=== PATIENT | female | born 1995 | race Caucasian/White ===

== ENCOUNTER 2018-02-08 23:13 | Emergency (ER) | payer MEDICAID ==
[~2018-02-08] VITALS: Ht 172.7 cm; Wt 127.3 kg
[~2018-02-08 23:13] MED LIST: ALBU6.7H3 IH; ALBU8.5H8 INH; ALBU8HFA PO; DIPH25CA83 PO; GUAI120015 PO; HYDR-3564 PO; HYDR-569 PO; IBUP-1574 PO; NO HOME MEDS; ONDA4TAB12 PO; ONDA8TAB9 PO; RANI-366 PO; ZOF4T PO
[2018-02-08] MEDS ORDERED: LIDOcaine Viscous 15ml cup MM STA (23:50)
[2018-02-08] MEDS ORDERED: dexamethasone sod phosphate 10mg/ml inj PO STA (23:50)
[2018-02-09 00:20] VITALS: BP 123/76
[2018-02-09] MEDS ORDERED: PHEN30SP9 PO (00:23)
== END 2018-02-09 01:00 | disposition home or self-care (01) ==
LOC: ER 23:13
DX: J02.9 Acute pharyngitis, unspecified (principal); H92.02 Otalgia, left ear; J45.909 Unspecified asthma, uncomplicated; Z98.890 Other specified postprocedural states; Z79.899 Other long term (current) drug therapy
CPT/HCPCS: 87081; 87880; 99284; J1100; 99283

== ENCOUNTER 2018-02-13 17:33 | Emergency (ER) | payer MEDICAID ==
[~2018-02-13 17:33] MED LIST changes: +PHEN30SP9 PO
== END 2018-02-13 18:18 | disposition left against medical advice (07) ==
LOC: ER 17:34
DX: J02.9 Acute pharyngitis, unspecified (principal); Z53.21 Procedure and treatment not carried out due to patient leaving prior to being seen by health care provider

== ENCOUNTER 2019-02-10 16:42 | Emergency (ER) | payer MEDICAID ==
[~2019-02-10] VITALS: Ht 167.6 cm; Wt 135.0 kg
[~2019-02-10 16:42] MED LIST changes: -HYDR-3564 PO; +HYDR-3565 PO; +HYDR-4383 PO; -HYDR-569 PO
--- NOTE | 2019-02-10 18:26 | NUR ---
called lonnie spoke to Deisy,said that patient needs to report this to the county where it happened.No case Number.
--- NOTE | 2019-02-10 18:27 | NUR ---
patient refused to file report.
[2019-02-10 19:13] VITALS: BP 152/58
[2019-02-10] MEDS ORDERED: HYDR-3965 PO (20:24)
[2019-02-10] MEDS ORDERED: ondansetron 4mg rapidly disintigrating tab PO ONE (20:25)
[2019-02-10] MEDS ORDERED: HYDROcodone/acetaminophen 5mg/325mg tablet PO ONE (20:25)
== END 2019-02-10 20:50 | disposition home or self-care (01) ==
LOC: ER 16:43
DX: S06.0X1A Concussion with loss of consciousness of 30 minutes or less, initial encounter (principal); M25.561 Pain in right knee; J45.909 Unspecified asthma, uncomplicated; Z98.890 Other specified postprocedural states; Z79.899 Other long term (current) drug therapy; Y04.8XXA Assault by other bodily force, initial encounter; Y93.89 Activity, other specified; Y92.89 Other specified places as the place of occurrence of the external cause; Y99.8 Other external cause status
CPT/HCPCS: 73564; 99284

== ENCOUNTER 2019-03-13 03:27 | Emergency (ER) | payer MEDICAID ==
[~2019-03-13] VITALS: Ht 162.6 cm; Wt 120.0 kg
[~2019-03-13 03:27] MED LIST changes: +HYDR-3965 PO
[2019-03-13 03:35] VITALS: BP 140/79
== END 2019-03-13 04:30 | disposition home or self-care (01) ==
LOC: ER 03:28
DX: O26.891 Other specified pregnancy related conditions, first trimester (principal); O99.511 Diseases of the respiratory system complicating pregnancy, first trimester; L29.9 Pruritus, unspecified; J45.909 Unspecified asthma, uncomplicated; Z98.890 Other specified postprocedural states; Z79.899 Other long term (current) drug therapy; Z3A.01 Less than 8 weeks gestation of pregnancy
CPT/HCPCS: 99281

== ENCOUNTER 2019-12-30 07:55 | Emergency (ER) | payer MEDICAID ==
[~2019-12-30] VITALS: Ht 167.6 cm; Wt 116.3 kg
[~2019-12-30 07:55] MED LIST changes: -HYDR-3965 PO; +PRED5DRO23 LEFTEYE
[2019-12-30 07:58] VITALS: BP 148/88
[2019-12-30] MEDS ORDERED: TRIA15CR61 TP (08:16)
[2019-12-30] MEDS ORDERED: DOXY100C76 PO (08:16)
== END 2019-12-30 08:22 | disposition home or self-care (01) ==
LOC: ER 07:55
DX: L73.9 Follicular disorder, unspecified (principal); J45.909 Unspecified asthma, uncomplicated; Z98.890 Other specified postprocedural states; Z79.2 Long term (current) use of antibiotics; Z79.899 Other long term (current) drug therapy
CPT/HCPCS: 99283

== ENCOUNTER 2021-03-08 22:59 | Emergency (ER) | payer MEDICAID ==
[~2021-03-08] VITALS: Ht 172.7 cm; Wt 131.8 kg
--- NOTE | 2021-03-08 23:28 | NUR ---
Report from Jessica CARTAGENA states pt has had numbness to hands and feet over the last few weeks and just today got pins and needles feeling to face. 12-lead EKG done. Pt denies any neurological history. Up to be seen by MD. Denies any CP, but states she occasionally get SOB.
[2021-03-08] MEDS ORDERED: LORazepam 0.5 MG tablet PO STA (23:34)
[2021-03-08 23:48] LABS: BASOPHILS # (AUTO) 0.1 X10'3 (0-0.2); BASOPHILS % (AUTO) 0.7 % (0-1); EOSINOPHILS # (AUTO) 0.1 X10'3 (0-0.9); HEMATOCRIT 39.8 % (35.0-45.0); HEMOGLOBIN 13.4 g/dl (12.0-16.0); LYMPHOCYTES # (AUTO) 3.2 X10'3 (1.1-4.8); LYMPHOCYTES % (AUTO) 27.2 % (21-51); MEAN CORPUSCULAR HEMOGLOBIN 31.8 PG (27.0-31.0); MEAN CORPUSCULAR HGB CONC 33.8 g/dL (33.0-36.5); MEAN CORPUSCULAR VOLUME 94.2 FL (78-98); MEAN PLATELET VOLUME 8.8 FL (7.4-10.4); MONOCYTES # (AUTO) 0.7 X10'3 (0-0.9); MONOCYTES % (AUTO) 6.4 % (2-12); NEUTROPHILS # (AUTO) 7.5 X10'3 (1.8-7.7); NEUTROPHILS % (AUTO) 64.7 % (42-75); PLATELET COUNT 256 X10'3 (140-440); RED BLOOD COUNT 4.22 X10'6 (4.20-5.60); RED CELL DISTRIBUTION WIDTH 13.2 % (11.5-14.5); WHITE BLOOD COUNT 11.7 X10'3 (4.5-11.0)
[2021-03-09] LABS: ALANINE AMINOTRANSFERASE 84 U/L (12-78); ALBUMIN 3.8 G/DL (3.4-5.0); ALBUMIN/GLOBULIN RATIO 1.1 (1.1-1.5); ALKALINE PHOSPHATASE 97 IU/L (46-116); ANION GAP 8 (8-16); ASPARTATE AMINO TRANSFERASE 90 U/L (10-37); BILIRUBIN,TOTAL 0.2 MG/DL (0.1-1.0); BLOOD UREA NITROGEN 13 MG/DL (7-18); BUN/CREATININE RATIO 15.5 (6.6-38.0); CHLORIDE 104 MMOL/L (99-107); CREATININE 0.84 MG/DL (0.40-0.90); GLUCOSE 83 MG/DL (70-104); POTASSIUM 3.3 MMOL/L (3.5-5.1); SODIUM 142 MMOL/L (135-145); TOTAL CARBON DIOXIDE 29.7 MMOL/L (24-32); TOTAL PROTEIN 7.4 G/DL (6.4-8.2); eGFR 81 ML/MIN
[2021-03-09 00:56] VITALS: BP 148/111
== END 2021-03-09 00:59 | disposition home or self-care (01) ==
LOC: ER 23:00
DX: R20.2 Paresthesia of skin (principal); R42 Dizziness and giddiness; R11.0 Nausea; J45.909 Unspecified asthma, uncomplicated; Z72.89 Other problems related to lifestyle; Z98.890 Other specified postprocedural states; Z79.899 Other long term (current) drug therapy
CPT/HCPCS: 36415; 80053; 84484; 85025; 93005; 99284

== ENCOUNTER 2021-08-29 19:40 | Emergency (ER) | payer MEDICAID ==
[~2021-08-29] VITALS: Ht 172.7 cm; Wt 127.3 kg
[~2021-08-29 19:40] MED LIST changes: +ALBU8.5H17 INH; -ALBU8.5H8 INH
[2021-08-29 19:48] VITALS: BP 159/136
== END 2021-08-29 23:39 | disposition left against medical advice (07) ==
LOC: ER 19:40
DX: R42 Dizziness and giddiness (principal); F14.10 Cocaine abuse, uncomplicated; Z53.21 Procedure and treatment not carried out due to patient leaving prior to being seen by health care provider
CPT/HCPCS: 93005

== ENCOUNTER 2023-10-01 11:14 | Inpatient (IN) | payer MEDICAID ==
[~2023-10-01] VITALS: Ht 162.6 cm; Wt 104.1 kg
[2023-10-01 11:45] LABS: BILIRUBIN,URINE NEGATIVE (Neg); CLARITY,URINE SLIGHTLY CLOUDY (Clear); COLOR,URINE YELLOW (Yellow); GLUCOSE, URINE NEGATIVE (Neg); KETONES,URINE TRACE mg/dl (Neg); LEUKOCYTE ESTERASE ,URINE NEGATIVE (Neg); NITRITES, URINE POSITIVE (Neg); OCCULT BLOOD,URINE NEGATIVE (Neg); PH,URINE 7.5 (4.8-8.0); PROTEIN,URINE NEGATIVE (Neg); URINE HCG NEGATIVE (NEG); UROBILINOGEN,URINE 0.2 E.U/dL (0.2-1.0)
[2023-10-01 11:49] LABS: UA COLLECTION TYPE CLN CATCH MIDSTREAM
--- NOTE | 2023-10-01 11:50 | NUR ---
CLEARING HAND YUE MADE AWARE OF PT SI
[2023-10-01 11:53] LABS: WBC,URINE 0-4 /HPF (0-4)
[2023-10-01 11:54] LABS: BACTERIA,URINE 4+ /HPF (Neg); MUCUS STRANDS FEW /LPF (Neg); RBC,URINE NONE SEEN /HPF (0-2); SQUAMOUS EPITHELIAL CELL,UR MANY /LPF (FEW)
[2023-10-01 11:59] LABS: URINE AMPHETAMINE SCREEN POSITIVE (Neg); URINE BARBITUATE SCREEN NEGATIVE (Neg); URINE BENZODIAZEPINES SCREEN NEGATIVE (Neg); URINE CANNABINOID SCREEN NEGATIVE (Neg); URINE COCAINE SCREEN NEGATIVE (Neg); URINE METHADONE SCREEN NEGATIVE (Neg); URINE OPIATE SCREEN NEGATIVE (Neg); URINE PHENCYCLIDINE SCREEN NEGATIVE (Neg)
[2023-10-01 12:24] LABS: BASOPHILS # (AUTO) 0.1 X10'3 (0-0.2); BASOPHILS % (AUTO) 0.6 % (0-1); EOSINOPHILS # (AUTO) 0.1 X10'3 (0-0.9); EOSINOPHILS % (AUTO) 1.1 % (0-6); HEMATOCRIT 41.7 % (35.0-45.0); LYMPHOCYTES # (AUTO) 2.2 X10'3 (1.1-4.8); LYMPHOCYTES % (AUTO) 22.5 % (21-51); MEAN CORPUSCULAR HEMOGLOBIN 29.4 PG (27.0-31.0); MEAN CORPUSCULAR HGB CONC 33.5 g/dL (33.0-36.5); MEAN CORPUSCULAR VOLUME 87.8 FL (78-98); MEAN PLATELET VOLUME 8.3 FL (7.4-10.4); MONOCYTES # (AUTO) 0.7 X10'3 (0-0.9); MONOCYTES % (AUTO) 6.8 % (2-12); NEUTROPHILS # (AUTO) 6.9 X10'3 (1.8-7.7); PLATELET COUNT 264 X10'3 (140-440); RED BLOOD COUNT 4.75 X10'6 (4.20-5.60); RED CELL DISTRIBUTION WIDTH 12.9 % (11.5-14.5); WHITE BLOOD COUNT 9.9 X10'3 (4.5-11.0)
--- NOTE | 2023-10-01 12:28 | NUR ---
Pt. ambulated over from the Main ER accompanied by staff.
[2023-10-01 12:39] LABS: ALANINE AMINOTRANSFERASE 79 U/L (12-78); ALBUMIN 3.4 G/DL (3.4-5.0); ALBUMIN/GLOBULIN RATIO 1.1 (1.1-1.5); ALKALINE PHOSPHATASE 106 IU/L (46-116); ANION GAP 7 (8-16); ASPARTATE AMINO TRANSFERASE 75 U/L (10-37); BILIRUBIN,TOTAL 0.2 MG/DL (0.1-1.0); BLOOD UREA NITROGEN 12 MG/DL (7-18); BUN/CREATININE RATIO 16.4 (10.0-20.0); CALCIUM 9.1 MG/DL (8.5-10.1); CHLORIDE 103 MMOL/L (99-107); CREATININE 0.73 MG/DL (0.40-0.90); GLUCOSE 109 MG/DL (70-104); POTASSIUM 3.9 MMOL/L (3.5-5.1); SODIUM 137 MMOL/L (135-145); TOTAL CARBON DIOXIDE 27.2 MMOL/L (24-32); TOTAL PROTEIN 6.6 G/DL (6.4-8.2); eCRCL 98 ML/MIN; eGFR > 90 ML/MIN
--- NOTE | 2023-10-01 12:40 | NUR ---
Pt. is adamantly refusing to change into green scrubs at this time, states, "No one told me I was on a hold! I just came here to get my medications refilled!" Pt. verbally abusive towards staff. Security was called for standby assistance.
[2023-10-01 12:49] LABS: ETHANOL < 10 MG/DL (<10); THYROID STIMULATING HORMONE 1.16 ulU/ml (0.34-4.50)
--- NOTE | 2023-10-01 12:52 | NUR ---
MD is at bedside talking to pt. at this time and explaining MH hold.
[2023-10-01] MEDS ORDERED: hydrOXYzine 25 MG tablet PO ONE (13:00)
--- NOTE | 2023-10-01 13:00 | NUR ---
Pt. finally consented to changing into green scrubs after she spoke to REMI Coleman. Security stood by while pt. did so, however pt. proceeded to throw her shoes and each item of clothing out of the curtain towards staff members. She remains agitated and verbally abusive towards staff stating, "Get the hell away from me! I'm going to odell you!" Pt. was able to be verbally redirected and REMI Coleman came back over to talk to pt. He gave orders for oral Atarax 50mg and provided education to pt. that if her behaviors continued to escalate, further interventions would be used. Pt. reported understanding and accepted oral medication while security stood by.
--- NOTE | 2023-10-01 13:20 | NUR ---
Pt. is laying in bed resting at this time, she refused lunch. Will continue to monitor closely.
--- NOTE | 2023-10-01 13:35 | NUR ---
[facility] PACKET FAXED.
--- NOTE | 2023-10-01 15:12 | NUR ---
This senior technical writer attempted to complete 1:1 at bedside. Pt. presents as fatigued and irritable, she does not open her eyes to look at this senior technical writer and responds to direct questions only with mostly, "No!" Pt. is uncooperative with physical assessment, medical history, and parts of the mental health assessment; she is a poor historian. Pt. denies any current S/I and perseverates on her desire to discharged. She also denies any A/V/MACHUCA and no delusional statements were made. Pt. become increasingly agitated and this senior technical writer was unable to complete a medication reconciliation at this time. Pt. appears to be sleeping, will continue to monitor closely.
--- NOTE | 2023-10-01 16:28 | NUR ---
[facility] charge nurse down to evaluate pt. for acceptance. Pt. continues to present as irritable, uncooperative, verbally abusive, and uses multiple profanities towards staff when asked to participate in assessment. The light to pt's room was turned on to obtain vital signs and pt. become irritable and yelled out, "Turn the fing light off! Do your job!" Pt. then returned back to sleep, will continue to monitor closely. Pt. was declined for acceptance at [facility].
--- NOTE | 2023-10-01 16:46 | NUR ---
Pt. awake at this time demanding the "Food out of her backpack!" Was provided education by this tag writer that she could not have outside food per policy. Pt. continued to be agitated and yelled out, "Then get me some f...ing food!" Pt. was provided with a snack and security was called for standby. Pt. returned back to sleep, will continue to monitor.
[2023-10-01] MEDS ORDERED: LORazepam 1 MG tablet PO ONE (17:40)
--- NOTE | 2023-10-01 17:41 | NUR ---
Pt. ate dinner and then reported anxiety and requested medication. This was endorsed to REMI Puga and oral Ativan 1mg was ordered. Medication was administered and pt. is sleeping at this time. Will continue to monitor.
[2023-10-01] MEDS ORDERED: NO HOME MEDS (19:37)
--- NOTE | 2023-10-01 19:38 | NUR ---
The patient appears to be sleeping. She is laying on her back with even and unlabored breathing.
--- NOTE | 2023-10-01 20:35 | NUR ---
The patient is restless on her bed but appears to be sleeping. At one point yelled out "Fuck!" but still appears to be sleeping
--- NOTE | 2023-10-01 23:02 | NUR ---
The patient appears to be asleep but is restless and periodically yelling out profanities.
--- NOTE | 2023-10-02 00:04 | NUR ---
The patient is awake and hungry. She was given a sandwhich. She is calmer but still anxious. Dr. iRvera made aware and ativan order.
[2023-10-02] MEDS ORDERED: LORazepam 1 MG tablet PO ONE (00:05)
--- NOTE | 2023-10-02 00:58 | NUR ---
The patient appears to be back asleep
--- NOTE | 2023-10-02 03:09 | NUR ---
The patient appears to be sleeping
--- NOTE | 2023-10-02 05:22 | NUR ---
The patient appears to be sleeping
[2023-10-02 10:05] VITALS: BP 123/78; PULSE 98; RESP 16; TEMP 98.3; O2SAT 98
[2023-10-02] MEDS ORDERED: haloperidol lactate 5mg/ml inj ONE ×2 (10:10→10:11)
--- NOTE | 2023-10-02 10:10 | NUR ---
Admit note: Pt [facility] to [facility] from our emergency room on a 5150 for DTS at 1005. Pt states having a noose at home and reported to multiple sources a plan and intention to hang herself. Pt has history of depression. Upon arrival pt refusing to get out of the wheelchair or follow any instructions. Security attempted to assist pt up out of wheelchair and pt screaming and fighting and cursing and threatening. Pt taken into seclusion room. Pt continues fighting and screaming. Pt unable to follow any safety instructions. Pt then restrained with four point restraints. Pt given Haldol 10mg IM, Benadryl 50mg IM, Ativan 2mg IM per REMI cortés.
[2023-10-02] MEDS ORDERED: diphenhydrAMINE 50 mg/ml inj ONE (10:11)
[2023-10-02] MEDS ORDERED: LORazepam 2 mg/ml vial ONE (10:12)
--- NOTE | 2023-10-02 10:54 | NUR ---
S/R Initiation (Y=yes; N=no) Date Seclusion/Behavioral Restraint Episode Began:10-02-23 Time Seclusion/Behavioral Restraint Episode Began:1009 Type of Restraint(Document Y for the type utilized) mechanical-4 point:Y physical hold:Y seclusion:Y Behavior Necessitating Behavioral Restraint/Seclusion(Document Y for DTS and/or DTO). Danger to self:[] Danger to others:Y Alternatives Attempted(Document Y for the alternatives attempted). Decrease stimuli:Y Diversional activities:Y Verbal limit setting:Y Medication:[] Reality orientation:Y Show of support:Y Problem solving:Y De-escalation:Y Food and fluids:[] Increased observation:[] Other:[] Behavioral Description(narrative of circumstances that led to use of S/R):Screaming, fighting, biting, spitting Medications Given:(medication name/time/route/location/effectiveness):Haldol 10mg IM, Benadryl 50mg IM, Ativan 2 MG IM Patient Injuries Y/N(if Y,describe/actions taken/outcome):N Notifications. Provider/Guardian/conservator/Family/other/No one identified by patient to be notified:[] Education. Education Topic for Seclusion and Behavioral Restraint(must educate each element and Document Y) Hospital policy:Y Reason for seclusion or restraint:[Y] Bx necessary for release:[Y] Monitoring of patient/behavior:[Y] Individual Taught(Document Y for individuals taught). Patient:[Y] Family:[] Significant other:[] Barriers to Learning(Document Y for the barrier(s)identified). None Identified:[] Emotional Barriers:[Y] Inability to Read:[] Anabaptism Practices:[] Cognitive Impairment:[y] Lack of Motivation:[] Language Barriers:[] Hearing:[] Cultural Practice:[] Other:[] Teaching Method(Document Y for the method(s)utilized). Verbal:[Y] Audio/Visual:[] Handouts:[] Demonstration:[] Other:[] Teaching Evaluation(Document Y for which response is applicable to patient). Verbalizes Understanding:[Y] Needs Further Teaching:[] Returns Demonstration:[] Needs Reinforcement:[] Needs Practice:[] Needs Supervision:[]
--- NOTE | 2023-10-02 11:00 | NUR ---
Seclusion: Pt is able to stop screaming and requesting to use bathroom. Pt is able to follow instructions enough to come out of restrains. Pt remained in seclusion until able to remain calm.
[2023-10-02] MEDS ORDERED: loperamide 2mg capsule PO PRN (11:05)
[2023-10-02] MEDS ORDERED: magnesium hydroxide 30ml (MOM) UD suspension PO PRN (11:05)
[2023-10-02] MEDS ORDERED: acetaminophen 325mg tablet PO PRN ×2 (11:05)
[2023-10-02] MEDS ORDERED: mag hydrox/Alum hydrox/simeth 30ml oral suspension PO PRN (11:05)
--- NOTE | 2023-10-02 11:56 | NUR ---
S/R Debrief (Y=yes; N=no) Date of Seclusion/Behavioral Restraint [id number] Time of Seclusion/Behavioral Restraint [id number] Date of Patient Debrief:10-02-23 Time of Patient Debrief:1030 Patient Attended Debrief (if N then comment why)N. Pt lenka not want to be part of debreif Debrief Info in patient words if possible (not necessary if pt. did not attend debrief) What led to the episode:Pt did not want to be on unit against her will How could patient have handled things differently:Perceived that staff wanted to help her and were being kind and understanding in their explanations. How could staff have handled things differently: Staff thought it was handled in a manner in which Pt and staff and others on unit were not injured. Patient Perception of Episode: Pt perceives she is being treated unfairly Physical Well-Being-(Y/N) Intact:[Y] Altered:[] Comment if altered:[] Psychological/Emotional Comfort-(Y/N) Intact:[Y] Altered:[] Comment if altered:[] Right to Privacy- (Y/N) Intact:[Y] Altered:[] Comment if altered:[] Trauma Experienced- (Y/N) Intact:[Y] Altered:[] Comment if altered:[]
--- NOTE | 2023-10-02 12:02 | NUR ---
S/R Discontinuation (Y=yes; N=no) Criteria for Release from Seclusion/Behavioral Restraint.(Y/N) Contracts for Safety:[] No Longer Danger to Others:Y No Longer Danger to Self:[] Behavioral Description(narrative):Pt calm and agreed to not behave violently Initiation Date of Seclusion/Behavioral Restraint Episode:10-02-23 Initiation Time of Seclusion/Behavioral Restraint Episode:1010 Discontinuation Date of Seclusion/Behavioral Restraint Episode:10-02-23 Discontinuation Time of Seclusion/Behavioral Restraint Episode:1100
--- NOTE | 2023-10-02 12:20 | NUR ---
Weight note: Pt refusing to use a scale. Will only tell us she is 230#.
[2023-10-02] MEDS: LORazepam 1 MG tablet PO SCH ×2 (13:00→21:00)
[2023-10-02 16:57] VITALS: RESP 16; O2SAT 98
[2023-10-02 19:18] VITALS: BP 132/89; PULSE 107; RESP 19; TEMP 96.9; O2SAT 100
--- NOTE | 2023-10-02 19:19 | NUR ---
Disregard VS; wrong pt. Addendum: 10/02/23 at 1920 by Tammi Stringer RN Amended: Links added.
[2023-10-02] MEDS: traZODone 50mg tablet PO SCH (21:00)
--- NOTE | 2023-10-03 03:02 | NUR ---
Nursing Progress Note: Problem: Pt making statements about having a noose at home and reported to multiple sources a plan and intention to hang herself. Pt has history of depression. Interventions: 1:1 assessment, monitoring, provided a quiet therapeutic environment, and maintained Q15 minute safety checks. Response: Patient is sleeping in the seclusion room with door ajar at the start of the shift. Appears fatigued after having an outburst on admission for which she was given medications. HS medications are held. Unable to complete full assessment due to patient being fatigued and requiring rest from her agitated state on admission. She sleeps through the evening and into the night. No s/sx acute distress are noted. Plan: Pt. requires interruption of current crisis and medication adjustments in a safe and supportive environment.
[2023-10-03 07:00] VITALS: RESP 18
[2023-10-03 08:00] VITALS: RESP 16
[2023-10-03] MEDS: LORazepam 1 MG tablet PO SCH ×3 (10:28→20:48)
[2023-10-03 11:07] LABS: CHOLESTEROL 169 MG/DL (0-200); HDL CHOLESTEROL 56 MG/DL (35-60); LDL CHOLESTEROL 82 MG/DL (50-100); TRIGLYCERIDES 192 MG/DL (20-135)
[2023-10-03 11:21] LABS: HEMOGLOBIN A1C 4.9 % (4.5-6.2)
[2023-10-03 13:19] VITALS: BP 89/49; PULSE 76; RESP 14; TEMP 97.1; O2SAT 97
--- NOTE | 2023-10-03 17:54 | NUR ---
Nursing Progress Note: Sahil Problem: Pt making statements about having a noose at home and reported to multiple sources a plan and intention to hang herself. Pt has history of depression. Interventions: Attempted 1:1 assessment. Provided a quiet therapeutic environment, medication administration/monitoring, monitored behaviors and intervened as necessary, maintained Q15 minute safety checks. Response: Patient received sleeping in the unlocked observation room at change of shift. No s/s of distress noted. She refused her breakfast tray this morning. Pt was receptive to scheduled medication but refused to speak with this film writer or allow assessment. She was noted sleeping most of the morning. Pt is guarded and irritable. She awoke and exited the observation room at approximately noon today. Pt retreated back to her room. She c/o lower back pain, given PRN Tylenol. Pt declined to join for meals in the group room this shift. She was provided with meals and snacks to her room per request. She denies all MH symptoms. Noted sleeping in her room the majority of the shift. Plan: Pt. requires interruption of current crisis and medication adjustments in a safe and supportive environment.
[2023-10-03 19:00] VITALS: BP 122/76; PULSE 66; RESP 16; TEMP 97.4; O2SAT 100
[2023-10-03] MEDS: traZODone 50mg tablet PO SCH (20:48)
--- NOTE | 2023-10-04 04:01 | NUR ---
Nursing Progress Note: Problem: Pt making statements about having a noose at home and reported to multiple sources a plan and intention to hang herself. Pt has history of depression. Interventions: Attempted 1:1 assessment. Provided a quiet therapeutic environment, medication administration/monitoring, monitored behaviors and intervened as necessary, maintained Q15 minute safety checks. Response: Patient remained in bed throughout this shift; she denied SI, HI, A/VH. She responded only to "yes" "no" questions but remained calm. Patient had refused dinner but appeared to eat HS snacks provided. She was compliant with HS medication; observed sleeping and does not appear to be having difficulty. Plan: Pt. requires interruption of current crisis and medication adjustments in a safe and supportive environment.
[2023-10-04 07:00] VITALS: RESP 14; O2SAT 97
[2023-10-04 08:00] VITALS: BP 129/77; PULSE 81; RESP 14; TEMP 98.3; O2SAT 97
[2023-10-04] MEDS: LORazepam 1 MG tablet PO SCH ×3 (08:28→21:25)
[2023-10-04] MEDS ORDERED: LORazepam 1 MG tablet PO ONE (14:30)
--- NOTE | 2023-10-04 17:40 | NUR ---
Nursing Progress Note: Sahil Problem: Pt making statements about having a noose at home and reported to multiple sources a plan and intention to hang herself. Pt has history of depression. Interventions: Attempted 1:1 assessment. Provided a quiet therapeutic environment, medication administration/monitoring, monitored behaviors and intervened as necessary, maintained Q15 minute safety checks. Response: Patient received sleeping in her room at shift change with no s/s of distress. She refused to join in the group room for breakfast and was provided with a meal tray to her room. She was noted sleeping most of the morning. Pt was receptive to scheduled medication but refused to speak with this engineering writer or allow assessment. Pt is guarded and irritable. She denies all MH symptoms. She is noted perseverating on discharge, however, is unable to endorse a viable safety plan. Pt is noted stating, it is none of your [employer] business! Pt is noted aggressively cursing at staff. She began hitting her fists into the wall above her bed requiring staff to intervene. Patient demanding to speak with a doctor. REMI Joy came in shortly after to speak with patient. She went back to sleep shortly after their conversation. Pt declined to join for meals in the group room this shift. She was provided with meals and snacks to her room per request. Noted sleeping in her room the majority of the shift. Plan: Pt. requires interruption of current crisis and medication adjustments in a safe and supportive environment.
[2023-10-04 18:40] VITALS: RESP 14; O2SAT 98
[2023-10-04 19:57] VITALS: BP 98/53; PULSE 71; RESP 14; TEMP 97.7; O2SAT 97
[2023-10-04] MEDS: traZODone 50mg tablet PO SCH (21:25)
--- NOTE | 2023-10-05 02:15 | NUR ---
Nursing Progress Note: Problem: Pt making statements about having a noose at home and reported to multiple sources a plan and intention to hang herself. Pt has history of depression. Interventions: Attempted 1:1 assessment. Provided a quiet therapeutic environment, medication administration/monitoring, monitored behaviors and intervened as necessary, maintained Q15 minute safety checks. Response: Upon arrival to shift noted patient sleeping. Awoke patient to say hello. Raised eyebrows in a scoffing manner. Appears that patient doesnt want to be bothered. Reports, Youre going to ask the same questions that have been asked all day. Denies SI, HI, AH or VH. Patient irritable and reports, Im being kept against my will. RN asked about SI and a plan with a noose. Patient reports, I never said that, I told them I had a noose and I got rid of it. Denies SI or a plan to harm herself. No outburst or behaviors noted. Remained in bed sleeping the duration of shift. Did not eat dinner initially but agreed to have tray warmed up. Did not end up eating food. Currently sleeping. Compliant with HS meds. No PRNs given. Will continue to monitor. Plan: Pt. requires interruption of current crisis and medication adjustments in a safe and supportive environment.
[2023-10-05 07:00] VITALS: RESP 16; O2SAT 99
[2023-10-05 08:00] VITALS: BP 122/68; PULSE 77; RESP 16; TEMP 97.6; O2SAT 99
[2023-10-05] MEDS ORDERED: ESCITALOPRAM 10 mg tablet 10 MG TABLET PO SCH (08:00)
[2023-10-05] MEDS: LORazepam 1 MG tablet PO SCH ×2 (08:19→12:49)
--- NOTE | 2023-10-05 12:24 | NUR ---
DISCHARGE PLAN Sahil is discharging today to return to [facility]. A fast food delivery driver will pick her up 3:15-3:30 PM. Please have her downstairs by 3:15 PM for her ride. They will assist her with picking up her meds from the pharmacy and follow up with [facility]. [facility]# [phone] HANNAH Parks
[2023-10-05] MEDS ORDERED: TRAZ-251 PO ×2 (12:42)
[2023-10-05] MEDS ORDERED: ESCI-8 PO ×2 (12:42)
--- NOTE | 2023-10-05 16:10 | NUR ---
DISCHARGE: Patient discharged and escorted from the unit at approximately 1522. She was escorted by staff and security to the lobby via wheelchair. Discharge instructions reviewed with understanding verbalized. Patients belongings inventoried and returned to her. Patient picked up by [facility] transportation inspector for transport to facility. She left the hospital without incident.
== END 2023-10-05 16:08 | disposition home or self-care (01) | DRG 751 ==
LOC: ER 11:15 → ED HOLD 10-02 09:09 → ADULT MH 10-02 10:02
PROVIDERS: ADMIT Psychiatry & Neurology Psychiatry; ATTEND Psychiatry & Neurology Psychiatry
DX: F33.1 Major depressive disorder, recurrent, moderate (principal); R45.851 Suicidal ideations; Z91.148 Patient's other noncompliance with medication regimen for other reason; F17.210 Nicotine dependence, cigarettes, uncomplicated; J45.909 Unspecified asthma, uncomplicated; Z20.822 Contact with and (suspected) exposure to COVID-19; Z79.899 Other long term (current) drug therapy; Z86.711 Personal history of pulmonary embolism; Z98.891 History of uterine scar from previous surgery
CPT/HCPCS: 36415; 80053; 80061; 80305; 80320; 81001; 81025; 83036; 84443; 85025; 87811; 99285; J1200; J1630; J2060; Q0177

== ENCOUNTER 2023-10-14 17:38 | Emergency (ER) | payer MEDICAID ==
[~2023-10-14] VITALS: Ht 172.7 cm; Wt 104.5 kg
[~2023-10-14 17:38] MED LIST changes: -ALBU6.7H3 IH; -ALBU8.5H17 INH; -ALBU8HFA PO; -DIPH25CA83 PO; +ESCI-8 PO; -GUAI120015 PO; -HYDR-3565 PO; -HYDR-4383 PO; -IBUP-1574 PO; -ONDA4TAB12 PO; -ONDA8TAB9 PO; -PHEN30SP9 PO; -PRED5DRO23 LEFTEYE; -RANI-366 PO; +TRAZ-251 PO; -ZOF4T PO
[2023-10-14 19:04] LABS: BASOPHILS # (AUTO) 0.1 X10'3 (0-0.2); EOSINOPHILS # (AUTO) 0.1 X10'3 (0-0.9); EOSINOPHILS % (AUTO) 0.4 % (0-6); HEMATOCRIT 42.7 % (35.0-45.0); HEMOGLOBIN 14.3 g/dl (12.0-16.0); LYMPHOCYTES % (AUTO) 22.2 % (21-51); MEAN CORPUSCULAR HEMOGLOBIN 29.6 PG (27.0-31.0); MEAN CORPUSCULAR HGB CONC 33.4 g/dL (33.0-36.5); MEAN CORPUSCULAR VOLUME 88.6 FL (78-98); MEAN PLATELET VOLUME 8.4 FL (7.4-10.4); MONOCYTES # (AUTO) 0.8 X10'3 (0-0.9); MONOCYTES % (AUTO) 5.6 % (2-12); NEUTROPHILS # (AUTO) 9.7 X10'3 (1.8-7.7); NEUTROPHILS % (AUTO) 70.8 % (42-75); PLATELET COUNT 314 X10'3 (140-440); RED BLOOD COUNT 4.82 X10'6 (4.20-5.60); RED CELL DISTRIBUTION WIDTH 13.3 % (11.5-14.5); WHITE BLOOD COUNT 13.7 X10'3 (4.5-11.0)
[2023-10-14 19:17] LABS: URINE HCG NEGATIVE (NEG)
[2023-10-14 19:30] LABS: ALANINE AMINOTRANSFERASE 40 U/L (12-78); ALBUMIN/GLOBULIN RATIO 1.1 (1.1-1.5); ALKALINE PHOSPHATASE 89 IU/L (46-116); ANION GAP 7 (8-16); ASPARTATE AMINO TRANSFERASE 21 U/L (10-37); BILIRUBIN,TOTAL 0.5 MG/DL (0.1-1.0); BLOOD UREA NITROGEN 11 MG/DL (7-18); BUN/CREATININE RATIO 13.8 (10.0-20.0); CALCIUM 9.4 MG/DL (8.5-10.1); CHLORIDE 103 MMOL/L (99-107); GLUCOSE 80 MG/DL (70-104); POTASSIUM 3.4 MMOL/L (3.5-5.1); SODIUM 138 MMOL/L (135-145); TOTAL CARBON DIOXIDE 28.1 MMOL/L (24-32); TOTAL PROTEIN 7.7 G/DL (6.4-8.2); eCRCL 105 ML/MIN; eGFR 85 ML/MIN
[2023-10-14 19:35] LABS: BILIRUBIN,URINE MODERATE (Neg); CLARITY,URINE TURBID (Clear); COLOR,URINE AMBER (Yellow); GLUCOSE, URINE NEGATIVE (Neg); KETONES,URINE TRACE mg/dl (Neg); LEUKOCYTE ESTERASE ,URINE NEGATIVE (Neg); NITRITES, URINE POSITIVE (Neg); OCCULT BLOOD,URINE LARGE (Neg); PROTEIN,URINE 100 mg/dl (Neg); UROBILINOGEN,URINE 0.2 E.U/dL (0.2-1.0)
[2023-10-14 19:36] LABS: URINE AMPHETAMINE SCREEN POSITIVE (Neg); URINE BARBITUATE SCREEN NEGATIVE (Neg); URINE BENZODIAZEPINES SCREEN NEGATIVE (Neg); URINE CANNABINOID SCREEN NEGATIVE (Neg); URINE COCAINE SCREEN NEGATIVE (Neg); URINE METHADONE SCREEN NEGATIVE (Neg); URINE OPIATE SCREEN NEGATIVE (Neg); URINE PHENCYCLIDINE SCREEN NEGATIVE (Neg)
[2023-10-14 19:39] LABS: THYROID STIMULATING HORMONE 1.24 ulU/ml (0.34-4.50)
[2023-10-14 19:43] LABS: ETHANOL < 10 MG/DL (<10)
[2023-10-14 19:47] LABS: UA COLLECTION TYPE CLN CATCH MIDSTREAM
[2023-10-14 19:49] LABS: BACTERIA,URINE 1+ /HPF (Neg); MUCUS STRANDS FEW /LPF (Neg); RBC,URINE TNTC /HPF (0-2); WBC,URINE 0-4 /HPF (0-4)
[2023-10-14 19:50] LABS: SQUAMOUS EPITHELIAL CELL,UR FEW /LPF (FEW)
[2023-10-14] MEDS ORDERED: haloperidol 5mg tablet PO ONE (20:15)
[2023-10-14] MEDS ORDERED: LORazepam 1 MG tablet PO ONE (20:15)
[2023-10-14] MEDS ORDERED: diphenhydrAMINE 25mg capsule PO ONE (20:15)
[2023-10-15 06:15] VITALS: BP 114/60; PULSE 68; TEMP 97.6; O2SAT 96
[2023-10-15] MEDS ORDERED: NO HOME MEDS (07:24)
[2023-10-15] MEDS: cephalexin 250mg capsule PO SCH ×2 (09:49→14:03)
[2023-10-15 09:54] VITALS: RESP 14
[2023-10-15] MEDS ORDERED: nicotine 21mg patch - 24 hr TD SCH (10:10)
[2023-10-15] MEDS ORDERED: LORazepam 1 MG tablet PO ONE (13:45)
== END 2023-10-15 15:28 | disposition still patient (30) ==
LOC: ER 17:39
DX: R45.851 Suicidal ideations (principal); Z20.822 Contact with and (suspected) exposure to COVID-19; F15.10 Other stimulant abuse, uncomplicated
CPT/HCPCS: 36415; 73090; 80053; 80305; 80320; 81001; 81025; 84443; 85025; 87811; 99285; Q0163

== ENCOUNTER 2024-02-03 19:13 | Emergency (ER) | payer MEDICAID ==
[~2024-02-03] VITALS: Ht 172.7 cm; Wt 103.9 kg
[~2024-02-03 19:13] MED LIST changes: -ESCI-8 PO; -TRAZ-251 PO
[2024-02-03 19:54] LABS: BASOPHILS # (AUTO) 0.1 X10'3 (0-0.2); BASOPHILS % (AUTO) 0.8 % (0-1); EOSINOPHILS # (AUTO) 0.1 X10'3 (0-0.9); EOSINOPHILS % (AUTO) 0.9 % (0-6); HEMATOCRIT 39.3 % (35.0-45.0); HEMOGLOBIN 13.1 g/dl (12.0-16.0); LYMPHOCYTES # (AUTO) 3.1 X10'3 (1.1-4.8); LYMPHOCYTES % (AUTO) 24.2 % (21-51); MEAN CORPUSCULAR HEMOGLOBIN 29.4 PG (27.0-31.0); MEAN CORPUSCULAR HGB CONC 33.4 g/dL (33.0-36.5); MEAN CORPUSCULAR VOLUME 88.2 FL (78-98); MONOCYTES # (AUTO) 0.9 X10'3 (0-0.9); MONOCYTES % (AUTO) 7.2 % (2-12); NEUTROPHILS # (AUTO) 8.5 X10'3 (1.8-7.7); NEUTROPHILS % (AUTO) 66.9 % (42-75); PLATELET COUNT 296 X10'3 (140-440); RED BLOOD COUNT 4.46 X10'6 (4.20-5.60); RED CELL DISTRIBUTION WIDTH 13.2 % (11.5-14.5); WHITE BLOOD COUNT 12.7 X10'3 (4.5-11.0)
[2024-02-03 20:17] LABS: ALBUMIN 3.3 G/DL (3.4-5.0); ANION GAP 12 (8-16); BLOOD UREA NITROGEN 10 MG/DL (7-18); BUN/CREATININE RATIO 13.2 (10.0-20.0); CALCIUM 8.5 MG/DL (8.5-10.1); CHLORIDE 108 MMOL/L (99-107); CREATININE 0.76 MG/DL (0.40-0.90); GLUCOSE 84 MG/DL (70-104); SODIUM 144 MMOL/L (135-145); TOTAL CARBON DIOXIDE 23.8 MMOL/L (24-32); eCRCL 109 ML/MIN; eGFR 89 ML/MIN
[2024-02-03 20:21] LABS: ETHANOL < 10 MG/DL (<10)
[2024-02-03 20:23] LABS: URINE HCG NEGATIVE (NEG)
[2024-02-03 20:27] LABS: URINE AMPHETAMINE SCREEN POSITIVE (Neg); URINE BARBITUATE SCREEN NEGATIVE (Neg); URINE BENZODIAZEPINES SCREEN NEGATIVE (Neg); URINE CANNABINOID SCREEN NEGATIVE (Neg); URINE COCAINE SCREEN NEGATIVE (Neg); URINE METHADONE SCREEN NEGATIVE (Neg); URINE OPIATE SCREEN NEGATIVE (Neg); URINE PHENCYCLIDINE SCREEN NEGATIVE (Neg)
[2024-02-03 20:31] LABS: BILIRUBIN,URINE NEGATIVE (Neg); CLARITY,URINE CLOUDY (Clear); COLOR,URINE YELLOW (Yellow); GLUCOSE, URINE NEGATIVE (Neg); KETONES,URINE NEGATIVE (Neg); LEUKOCYTE ESTERASE ,URINE LARGE (Neg); NITRITES, URINE NEGATIVE (Neg); OCCULT BLOOD,URINE TRACE-INTACT (Neg); PROTEIN,URINE NEGATIVE (Neg); UROBILINOGEN,URINE 0.2 E.U/dL (0.2-1.0)
[2024-02-03 20:46] LABS: UA COLLECTION TYPE CLN CATCH MIDSTREAM
[2024-02-03 20:49] LABS: WBC,URINE 30-50 /HPF (0-4)
[2024-02-03 20:50] LABS: BACTERIA,URINE 1+ /HPF (Neg); MUCUS STRANDS FEW /LPF (Neg); SQUAMOUS EPITHELIAL CELL,UR MANY /LPF (FEW)
[2024-02-04] MEDS: cephalexin 250mg capsule PO SCH ×2 (07:29→15:17)
[2024-02-04] MEDS: acetaminophen 325mg tablet PO ONE (09:54)
[2024-02-04] MEDS: ibuprofen 200mg tablet PO ONE (10:40)
[2024-02-04] MEDS ORDERED: cephalexin 250mg capsule PO SCH (14:45)
[2024-02-05] MEDS: ibuprofen tablet 400 MG TABLET PO ONE (12:00)
[2024-02-05 14:30] VITALS: BP 97/51; PULSE 63; RESP 16; TEMP 97.8; O2SAT 99
[2024-02-07 19:08] LABS: CHLAMYDIA TRACHOMATIS, NAA Negative (Negative)
== END 2024-02-05 14:20 | disposition still patient (30) ==
LOC: ER 19:14
DX: F32.A Depression, unspecified (principal); Z20.822 Contact with and (suspected) exposure to COVID-19; R45.851 Suicidal ideations; J45.909 Unspecified asthma, uncomplicated; Z79.899 Other long term (current) drug therapy
CPT/HCPCS: 36415; 80048; 80305; 80320; 81001; 81025; 85025; 87491; 87811; 99285

== ENCOUNTER 2024-06-07 00:07 | Inpatient (IN) | payer MEDICAID ==
[~2024-06-07] VITALS: Ht 172.7 cm; Wt 102.4 kg
[2024-06-07 00:49] LABS: BASOPHILS % (AUTO) 0.4 % (0-1); EOSINOPHILS # (AUTO) 0.2 X10'3 (0-0.9); EOSINOPHILS % (AUTO) 1.5 % (0-6); HEMATOCRIT 39.5 % (35.0-45.0); HEMOGLOBIN 12.7 g/dl (12.0-16.0); LYMPHOCYTES # (AUTO) 2.7 X10'3 (1.1-4.8); LYMPHOCYTES % (AUTO) 24.3 % (21-51); MEAN CORPUSCULAR HEMOGLOBIN 28.5 PG (27.0-31.0); MEAN CORPUSCULAR HGB CONC 32.2 g/dL (33.0-36.5); MEAN CORPUSCULAR VOLUME 88.6 FL (78-98); MEAN PLATELET VOLUME 8.1 FL (7.4-10.4); MONOCYTES # (AUTO) 0.8 X10'3 (0-0.9); MONOCYTES % (AUTO) 6.8 % (2-12); NEUTROPHILS # (AUTO) 7.5 X10'3 (1.8-7.7); PLATELET COUNT 257 X10'3 (140-440); RED BLOOD COUNT 4.46 X10'6 (4.20-5.60); RED CELL DISTRIBUTION WIDTH 13.8 % (11.5-14.5); WHITE BLOOD COUNT 11.1 X10'3 (4.5-11.0)
[2024-06-07 00:54] LABS: ALBUMIN 3.1 G/DL (3.4-5.0); ANION GAP 7 (8-16); BLOOD UREA NITROGEN 9 MG/DL (7-18); BUN/CREATININE RATIO 12.7 (10.0-20.0); CALCIUM 9.1 MG/DL (8.5-10.1); CHLORIDE 105 MMOL/L (99-107); CREATININE 0.71 MG/DL (0.40-0.90); ETHANOL < 10 MG/DL (<10); GLUCOSE 119 MG/DL (70-104); POTASSIUM 3.4 MMOL/L (3.5-5.1); SODIUM 139 MMOL/L (135-145); TOTAL CARBON DIOXIDE 26.7 MMOL/L (24-32); eCRCL 117 ML/MIN; eGFR > 90 ML/MIN
[2024-06-07 00:55] LABS: URINE HCG NEGATIVE (NEG)
[2024-06-07] MEDS ORDERED: OLAN10TA73 PO (01:09)
[2024-06-07] MEDS: potassium Cl 20 mEq SR tablet PO STA (01:17)
[2024-06-07 01:22] LABS: URINE AMPHETAMINE SCREEN POSITIVE (Neg); URINE BARBITUATE SCREEN NEGATIVE (Neg); URINE BENZODIAZEPINES SCREEN NEGATIVE (Neg); URINE CANNABINOID SCREEN NEGATIVE (Neg); URINE COCAINE SCREEN NEGATIVE (Neg); URINE METHADONE SCREEN NEGATIVE (Neg); URINE OPIATE SCREEN NEGATIVE (Neg); URINE PHENCYCLIDINE SCREEN NEGATIVE (Neg)
[2024-06-07] MEDS ORDERED: OLAN5TAB75 PO (01:56)
[2024-06-07] MEDS ORDERED: OLANZAPINE 5 MG TABLET PO PRN (02:10)
[2024-06-07] MEDS: olanzapine 10mg tablet PO SCH (04:27)
[2024-06-07 13:03] VITALS: BP 117/83; PULSE 82; RESP 16; TEMP 98.7; O2SAT 100
[2024-06-07 13:28] VITALS: RESP 16; O2SAT 100
[2024-06-07] MEDS ORDERED: magnesium hydroxide 30ml (MOM) UD suspension PO PRN (13:35)
[2024-06-07] MEDS ORDERED: loperamide 2mg capsule PO PRN (13:35)
[2024-06-07] MEDS ORDERED: acetaminophen 325mg tablet PO PRN (13:35)
[2024-06-07] MEDS ORDERED: mag hydrox/Alum hydrox/simeth 30ml oral suspension PO PRN (13:35)
[2024-06-07 19:00] VITALS: RESP 16; O2SAT 100
[2024-06-07 20:00] VITALS: BP 107/51; PULSE 75; RESP 22; TEMP 97.3; O2SAT 97
[2024-06-08 02:43] LABS: HEMOGLOBIN A1C 5.1 % (4.5-6.2)
[2024-06-08 06:13] LABS: CHOLESTEROL 191 MG/DL (0-200); HDL CHOLESTEROL 97 MG/DL (35-60); LDL CHOLESTEROL 71 MG/DL (50-100); TRIGLYCERIDES 83 MG/DL (20-135)
[2024-06-08 07:00] VITALS: BP 117/69; PULSE 69; RESP 14; TEMP 98.1; O2SAT 97
[2024-06-08] MEDS: NICOTINE POLACRILEX 2 MG LOZENGE BC PRN (07:43)
[2024-06-08] MEDS: nicotine 21mg patch - 24 hr TD SCH (07:43)
[2024-06-08 19:00] VITALS: BP 120/68; PULSE 104; RESP 17; TEMP 97; O2SAT 97
[2024-06-09 07:00] VITALS: BP 115/66; PULSE 67; RESP 14; TEMP 97.5; O2SAT 99
[2024-06-09 07:53] LABS: ALBUMIN 3.3 G/DL (3.4-5.0); ANION GAP 9 (8-16); BLOOD UREA NITROGEN 21 MG/DL (7-18); BUN/CREATININE RATIO 36.8 (10.0-20.0); CALCIUM 9.5 MG/DL (8.5-10.1); CHLORIDE 104 MMOL/L (99-107); CREATININE 0.57 MG/DL (0.40-0.90); GLUCOSE 91 MG/DL (70-104); POTASSIUM 4.4 MMOL/L (3.5-5.1); SODIUM 137 MMOL/L (135-145); TOTAL CARBON DIOXIDE 24.3 MMOL/L (24-32); eCRCL 146 ML/MIN; eGFR > 90 ML/MIN
[2024-06-09 08:10] LABS: BASOPHILS # (AUTO) 0.1 X10'3 (0-0.2); BASOPHILS % (AUTO) 0.7 % (0-1); EOSINOPHILS # (AUTO) 0.1 X10'3 (0-0.9); EOSINOPHILS % (AUTO) 1.3 % (0-6); HEMATOCRIT 42.5 % (35.0-45.0); HEMOGLOBIN 14.1 g/dl (12.0-16.0); LYMPHOCYTES # (AUTO) 1.6 X10'3 (1.1-4.8); LYMPHOCYTES % (AUTO) 18.4 % (21-51); MEAN CORPUSCULAR HEMOGLOBIN 29.4 PG (27.0-31.0); MEAN CORPUSCULAR HGB CONC 33.2 g/dL (33.0-36.5); MEAN CORPUSCULAR VOLUME 88.6 FL (78-98); MEAN PLATELET VOLUME 8.2 FL (7.4-10.4); MONOCYTES # (AUTO) 0.5 X10'3 (0-0.9); MONOCYTES % (AUTO) 6.1 % (2-12); NEUTROPHILS # (AUTO) 6.4 X10'3 (1.8-7.7); NEUTROPHILS % (AUTO) 73.5 % (42-75); PLATELET COUNT 244 X10'3 (140-440); RED CELL DISTRIBUTION WIDTH 13.6 % (11.5-14.5); WHITE BLOOD COUNT 8.7 X10'3 (4.5-11.0)
[2024-06-09 19:31] VITALS: BP 118/72; PULSE 88; RESP 20; TEMP 97.6; O2SAT 98
[2024-06-10 07:00] VITALS: BP 116/66; PULSE 79; RESP 14; TEMP 98.4; O2SAT 96
[2024-06-10 19:00] VITALS: BP 95/54; PULSE 85; RESP 14; TEMP 97.7; O2SAT 97
[2024-06-10] MEDS: olanzapine 10mg tablet PO SCH (20:35)
[2024-06-11] MEDS: OLANZAPINE 5 MG TABLET PO PRN (01:29)
[2024-06-11 07:00] VITALS: RESP 14; O2SAT 98
[2024-06-11 08:00] VITALS: BP 107/67; PULSE 68; RESP 14; TEMP 97.6; O2SAT 98
[2024-06-11] MEDS: LIDOcaine 5% patch TP SCH (08:27)
[2024-06-11 19:00] VITALS: BP 118/70; PULSE 75; RESP 16; TEMP 98.9; O2SAT 98
[2024-06-12] MEDS: acetaminophen 325mg tablet PO PRN (01:17)
[2024-06-12 07:32] VITALS: BP 112/60; PULSE 69; RESP 14; TEMP 98.1; O2SAT 98
[2024-06-12 08:45] VITALS: RESP 16
[2024-06-12] MEDS ORDERED: NICO-687 TD (09:34)
[2024-06-12] MEDS ORDERED: OLAN10TA73 PO (09:34)
[2024-06-12] MEDS ORDERED: NICO-907 BC (09:34)
== END 2024-06-12 09:52 | disposition home or self-care (01) | DRG 754 ==
LOC: ER 00:08 → ED HOLD 11:20 → ADULT MH 13:05
PROVIDERS: ADMIT Student in an Organized Health Care Education/Training Program; ATTEND Student in an Organized Health Care Education/Training Program
DX: F32.A Depression, unspecified (principal); R45.851 Suicidal ideations; E66.3 Overweight; Z20.822 Contact with and (suspected) exposure to COVID-19; J45.909 Unspecified asthma, uncomplicated; F17.210 Nicotine dependence, cigarettes, uncomplicated; Z68.34 Body mass index [BMI] 34.0-34.9, adult; G89.29 Other chronic pain; M54.9 Dorsalgia, unspecified; F15.10 Other stimulant abuse, uncomplicated; Z98.891 History of uterine scar from previous surgery
CPT/HCPCS: 36415; 80048; 80061; 80305; 80320; 81025; 83036; 85025; 87081; 87811; 99285; A4615

== ENCOUNTER 2024-07-21 08:23 | Emergency (ER) | payer MEDICAID ==
[~2024-07-21] VITALS: Ht 172.7 cm; Wt 103.8 kg
[~2024-07-21 08:23] MED LIST changes: +NICO-687 TD; +NICO-907 BC; -NO HOME MEDS; +OLAN10TA73 PO
[2024-07-21 08:48] LABS: URINE HCG NEGATIVE (NEG)
[2024-07-21 08:50] LABS: BILIRUBIN,URINE NEGATIVE (Neg); CLARITY,URINE CLOUDY (Clear); COLOR,URINE YELLOW (Yellow); GLUCOSE, URINE NEGATIVE (Neg); KETONES,URINE NEGATIVE (Neg); LEUKOCYTE ESTERASE ,URINE NEGATIVE (Neg); NITRITES, URINE POSITIVE (Neg); OCCULT BLOOD,URINE TRACE-INTACT (Neg); PROTEIN,URINE NEGATIVE (Neg); UROBILINOGEN,URINE 0.2 E.U/dL (0.2-1.0)
[2024-07-21 08:55] LABS: UA COLLECTION TYPE CLN CATCH MIDSTREAM
[2024-07-21 08:57] LABS: BACTERIA,URINE 4+ /HPF (Neg); MUCUS STRANDS FEW /LPF (Neg); RBC,URINE 0-2 /HPF (0-2); SQUAMOUS EPITHELIAL CELL,UR MANY /LPF (FEW)
[2024-07-21 08:59] LABS: URINE AMPHETAMINE SCREEN POSITIVE (Neg); URINE BARBITUATE SCREEN NEGATIVE (Neg); URINE BENZODIAZEPINES SCREEN NEGATIVE (Neg); URINE CANNABINOID SCREEN NEGATIVE (Neg); URINE COCAINE SCREEN NEGATIVE (Neg); URINE METHADONE SCREEN NEGATIVE (Neg); URINE OPIATE SCREEN NEGATIVE (Neg); URINE PHENCYCLIDINE SCREEN NEGATIVE (Neg)
[2024-07-21] MEDS ORDERED: OLAN5TAB5 PO (09:21)
[2024-07-21 09:35] LABS: BASOPHILS # (AUTO) 0.1 X10'3 (0-0.2); BASOPHILS % (AUTO) 0.5 % (0-1); EOSINOPHILS % (AUTO) 0.3 % (0-6); HEMATOCRIT 42.2 % (35.0-45.0); HEMOGLOBIN 13.9 g/dl (12.0-16.0); LYMPHOCYTES # (AUTO) 1.3 X10'3 (1.1-4.8); LYMPHOCYTES % (AUTO) 9.9 % (21-51); MEAN CORPUSCULAR HEMOGLOBIN 29.2 PG (27.0-31.0); MEAN CORPUSCULAR VOLUME 88.7 FL (78-98); MEAN PLATELET VOLUME 8.6 FL (7.4-10.4); MONOCYTES # (AUTO) 0.5 X10'3 (0-0.9); MONOCYTES % (AUTO) 3.7 % (2-12); NEUTROPHILS # (AUTO) 11.2 X10'3 (1.8-7.7); NEUTROPHILS % (AUTO) 85.6 % (42-75); PLATELET COUNT 268 X10'3 (140-440); RED BLOOD COUNT 4.75 X10'6 (4.20-5.60); RED CELL DISTRIBUTION WIDTH 13.3 % (11.5-14.5); WHITE BLOOD COUNT 13.1 X10'3 (4.5-11.0)
[2024-07-21 10:01] LABS: ALBUMIN 3.6 G/DL (3.4-5.0); ANION GAP 10 (8-16); BLOOD UREA NITROGEN 9 MG/DL (7-18); BUN/CREATININE RATIO 12.9 (10.0-20.0); CALCIUM 9.4 MG/DL (8.5-10.1); CHLORIDE 106 MMOL/L (99-107); ETHANOL < 10 MG/DL (<10); GLUCOSE 100 MG/DL (70-104); POTASSIUM 3.8 MMOL/L (3.5-5.1); SODIUM 142 MMOL/L (135-145); THYROID STIMULATING HORMONE 0.49 ulU/ml (0.34-4.50); TOTAL CARBON DIOXIDE 25.8 MMOL/L (24-32); eCRCL 119 ML/MIN; eGFR > 90 ML/MIN
[2024-07-21 14:32] VITALS: BP 132/79; PULSE 62; RESP 15; TEMP 97.7; O2SAT 96
== END 2024-07-21 14:40 | disposition home or self-care (01) ==
LOC: ER 08:23
DX: R45.851 Suicidal ideations (principal); Z20.822 Contact with and (suspected) exposure to COVID-19; J45.909 Unspecified asthma, uncomplicated; Z79.899 Other long term (current) drug therapy; Z98.890 Other specified postprocedural states
CPT/HCPCS: 36415; 80048; 80305; 80320; 81001; 81025; 84443; 85025; 87811; 99285

== ENCOUNTER 2024-09-15 11:11 | Emergency (ER) | payer MEDICAID ==
[~2024-09-15] VITALS: Ht 172.7 cm; Wt 111.4 kg
[~2024-09-15 11:11] MED LIST changes: -NICO-687 TD; -NICO-907 BC; -OLAN10TA73 PO; +OLAN5TAB5 PO
[2024-09-15] MEDS ORDERED: OLAN10TA3 PO (12:17)
[2024-09-15] MEDS: OLANZapine 2.5MG tablet PO ONE (12:28)
[2024-09-15 12:36] VITALS: BP 164/82; PULSE 100; RESP 16; TEMP 98.2; O2SAT 99
== END 2024-09-15 12:38 | disposition home or self-care (01) ==
LOC: ER 11:11
DX: F31.9 Bipolar disorder, unspecified (principal); Z76.0 Encounter for issue of repeat prescription; J45.909 Unspecified asthma, uncomplicated; Z98.890 Other specified postprocedural states; Z72.89 Other problems related to lifestyle; Z91.018 Allergy to other foods; Z79.899 Other long term (current) drug therapy
CPT/HCPCS: 99283

== ENCOUNTER 2024-09-17 21:03 | Emergency (ER) | payer MEDICAID ==
[~2024-09-17] VITALS: Ht 172.7 cm; Wt 108.5 kg
[~2024-09-17 21:03] MED LIST changes: +OLAN10TA3 PO
[2024-09-17 21:07] VITALS: BP 143/99; PULSE 78; TEMP 98.5; O2SAT 98
[2024-09-17] MEDS: ibuprofen tablet 400 MG TABLET PO ONE (22:21)
[2024-09-17] MEDS: OLANZapine 2.5MG tablet PO ONE (22:21)
[2024-09-17 22:23] VITALS: RESP 16
== END 2024-09-17 22:24 | disposition home or self-care (01) ==
LOC: ER 21:05
DX: S97.81XA Crushing injury of right foot, initial encounter (principal); W23.0XXA Caught, crushed, jammed, or pinched between moving objects, initial encounter; Y93.89 Activity, other specified; Y92.89 Other specified places as the place of occurrence of the external cause; Y99.8 Other external cause status
CPT/HCPCS: 73610; 73630; 99284

== ENCOUNTER 2024-09-25 06:55 | Emergency (ER) | payer MEDICAID ==
[~2024-09-25] VITALS: Ht 172.7 cm; Wt 108.0 kg
[2024-09-25 07:05] VITALS: BP 135/88; PULSE 64; RESP 18; O2SAT 98
[2024-09-25 10:42] VITALS: TEMP 97.8
== END 2024-09-25 10:59 | disposition home or self-care (01) ==
LOC: ER 06:56
DX: F15.10 Other stimulant abuse, uncomplicated (principal); J45.909 Unspecified asthma, uncomplicated; Z59.00 Homelessness unspecified; Z91.018 Allergy to other foods; Z79.899 Other long term (current) drug therapy; Z98.890 Other specified postprocedural states; Z72.89 Other problems related to lifestyle
CPT/HCPCS: 99281

== ENCOUNTER 2024-12-16 17:21 | Emergency (ER) | payer MEDICAID ==
[~2024-12-16] VITALS: Ht 170.2 cm; Wt 101.5 kg
[~2024-12-16 17:21] MED LIST changes: +BUPR-297 PO; +DIVA125C10 PO; +HYDR-3686 PO; -OLAN10TA3 PO; +OLAN10TA73 PO; -OLAN5TAB5 PO
[2024-12-16 17:33] VITALS: BP 144/92; PULSE 105; RESP 16; TEMP 97.7; O2SAT 97
[2024-12-16] MEDS ORDERED: DIVA-76 PO (17:50)
[2024-12-16] MEDS ORDERED: BUPR-72 PO (17:50)
[2024-12-16] MEDS ORDERED: OLAN5TAB75 PO (17:50)
[2024-12-16] MEDS ORDERED: HYDR-3927 (17:50)
[2024-12-16] MEDS ORDERED: OLAN5TAB5 PO (17:52)
[2024-12-16] MEDS ORDERED: BUPR-297 PO (17:53)
[2024-12-16] MEDS ORDERED: DIVA125C10 PO (17:53)
[2024-12-16] MEDS ORDERED: HYDR-3686 PO (17:53)
[2024-12-16] MEDS: ibuprofen tablet 400 MG TABLET PO ONE (17:58)
== END 2024-12-16 18:17 | disposition home or self-care (01) ==
LOC: ER 17:21
DX: Z00.00 Encounter for general adult medical examination without abnormal findings (principal); Z76.0 Encounter for issue of repeat prescription; J45.909 Unspecified asthma, uncomplicated; Z98.890 Other specified postprocedural states; Z88.8 Allergy status to other drugs, medicaments and biological substances
CPT/HCPCS: 99282

== ENCOUNTER 2025-02-13 20:19 | Emergency (ER) | payer MEDICAID ==
[~2025-02-13] VITALS: Ht 167.6 cm; Wt 96.8 kg
[~2025-02-13 20:19] MED LIST changes: +BUPR-72 PO; +DIVA-76 PO; +HYDR-3927; +OLAN5TAB5 PO
[2025-02-13 20:27] VITALS: BP 148/100; PULSE 80; O2SAT 99
[2025-02-13] MEDS: dexamethasone sod phosphate 10mg/ml inj IM STA (21:03)
[2025-02-13] MEDS: cyclobenzaprine 10mg tablet PO ONE (21:03)
[2025-02-13 21:04] VITALS: RESP 16
[2025-02-13] MEDS: ketorolac trometh 15mg/ml vial 15 MG/ML ML IM ONE (21:04)
[2025-02-13 22:47] LABS: BASOPHILS # (AUTO) 0.1 X10'3 (0-0.2); BASOPHILS % (AUTO) 0.9 % (0-1); EOSINOPHILS # (AUTO) 0.1 X10'3 (0-0.9); EOSINOPHILS % (AUTO) 1.1 % (0-6); HEMATOCRIT 40.8 % (35.0-45.0); HEMOGLOBIN 13.8 g/dl (12.0-16.0); LYMPHOCYTES # (AUTO) 2.2 X10'3 (1.1-4.8); LYMPHOCYTES % (AUTO) 26.5 % (21-51); MEAN CORPUSCULAR HEMOGLOBIN 29.9 PG (27.0-31.0); MEAN CORPUSCULAR HGB CONC 33.9 g/dL (33.0-36.5); MEAN CORPUSCULAR VOLUME 88.4 FL (78-98); MEAN PLATELET VOLUME 8.2 FL (7.4-10.4); MONOCYTES # (AUTO) 0.5 X10'3 (0-0.9); MONOCYTES % (AUTO) 6.2 % (2-12); NEUTROPHILS # (AUTO) 5.5 X10'3 (1.8-7.7); NEUTROPHILS % (AUTO) 65.3 % (42-75); PLATELET COUNT 292 X10'3 (140-440); RED BLOOD COUNT 4.62 X10'6 (4.20-5.60); RED CELL DISTRIBUTION WIDTH 13.4 % (11.5-14.5); WHITE BLOOD COUNT 8.5 X10'3 (4.5-11.0)
[2025-02-13 22:49] LABS: ALBUMIN 3.8 G/DL (3.4-5.0); ANION GAP 6 (8-16); BLOOD UREA NITROGEN 12 MG/DL (7-18); BUN/CREATININE RATIO 15.2 (10.0-20.0); CALCIUM 9.1 MG/DL (8.5-10.1); CHLORIDE 105 MMOL/L (99-107); CREATININE 0.79 MG/DL (0.40-0.90); GLUCOSE 78 MG/DL (70-104); POTASSIUM 3.6 MMOL/L (3.5-5.1); SODIUM 141 MMOL/L (135-145); TOTAL CARBON DIOXIDE 30.4 MMOL/L (24-32); eCRCL 97 ML/MIN; eGFR 85 ML/MIN
[2025-02-13 23:01] LABS: BETA HCG,QUANTITATIVE < 1.0 mIU/ml
[2025-02-13] MEDS: LIDOcaine 1% (10mg/ml)w/preservative inj. 20ml MDV SQ ONE (23:02)
[2025-02-13 23:35] LABS: GLUCOSE,CSF 51 MG/DL (40-75); TOTAL PROTEIN,CSF 31 MG/DL (15-45)
[2025-02-13] MEDS: normal saline 1000ml 1,000 ML IV ONE (23:40)
[2025-02-13 23:43] LABS: APPEARANCE,CSF CLEAR; CSF SUPERNATANT COLOR COLORLESS; CSF VOLUME 4.5 ML; CSF WBC CT 0 /CU MM (0-5); TUBE# COUNTED 4
[2025-02-13 23:44] LABS: APPEARANCE,CSF CLEAR; CSF RBC 0 /CU MM (0); CSF SUPERNATANT COLOR COLORLESS; CSF VOLUME 4.5 ML; TUBE# COUNTED 1
[2025-02-13 23:46] LABS: CSF RBC 1 /CU MM (0)
[2025-02-14] LABS: CSF WBC CT 1 /CU MM (0-5)
[2025-02-14] MEDS ORDERED: METH-798 PO (00:09)
[2025-02-14] MEDS ORDERED: PRED20TA PO (00:09)
[2025-02-14] MEDS ORDERED: BUTA-245 PO (00:10)
[2025-02-14 00:34] VITALS: TEMP 97.8
== END 2025-02-14 00:56 | disposition home or self-care (01) ==
LOC: ER 20:19
DX: G44.86 Cervicogenic headache (principal); J45.909 Unspecified asthma, uncomplicated; Z88.8 Allergy status to other drugs, medicaments and biological substances; Z98.890 Other specified postprocedural states; Z20.822 Contact with and (suspected) exposure to COVID-19
CPT/HCPCS: 36415; 62270; 70450; 80048; 82945; 84157; 84702; 85025; 87015; 87070; 87502; 87503; 87811; 89051; 96360; 96372; 99285; J1100; J1885; J7030; A6449

== ENCOUNTER 2025-08-09 13:35 | Emergency (ER) | payer MEDICAID ==
[~2025-08-09] VITALS: Ht 167.6 cm; Wt 95.5 kg
[~2025-08-09 13:35] MED LIST changes: +BUTA-245 PO; +DIVA-134 PO; -DIVA-76 PO; +METH-798 PO
[2025-08-09 13:36] VITALS: BP 111/68; PULSE 104; RESP 16; O2SAT 100
--- NOTE | 2025-08-09 14:27 | Physician Documentation ---
History of Present Illness ~ Chief Complaint: Medical Clearance Stated Complaint: MED CLEARANCE Time Seen by MD: 14:04 Primary Medical Doctor: [facility] HPI 29-year-old female presents to the ED with a request for medical clearance so she can [facility] secondary to habitual meth use. She states that the last time she used meth was two days ago. Denies any cardiac symptoms. states she is ready to pursue recovery Tetanus within 5 years?: Yes Medication Reconciliation Allergies: Coded Allergies: nutmeg oil (Myristica seed oil) (Verified Allergy, Unknown, 08/09/25) Scheduled Bupropion HCl (Bupropion HCl Sr), 1 TAB PO BID, (Reported) Bupropion HCl (Bupropion HCl), 150 MG PO BID Divalproex Sodium (Divalproex Sodium), 500 MG PO HS Divalproex Sodium DR* (Depakote DR*), 1 TAB PO HS, (Reported) Methocarbamol (Methocarbamol), 1 TAB PO Q8H Olanzapine (Olanzapine), 1 TAB PO HS Olanzapine* (Zyprexa Zydis Odt*), 2 TAB PO HS Scheduled PRN Butalb/Acetaminophen/Caffeine (Fioricet Tab), 1 TAB PO Q6H PRN for pain Hydroxyzine Hcl* (Atarax*), 25 MG PO Q6H PRN for anxiety Miscellaneous Medications Hydroxyzine Pamoate (Hydroxyzine Pamoate), 1, (Reported) Past Medical History Past Medical History: No Pertinent History, Asthma Past Surgical History: , orthopedic surgeries Patient History: FHx: suicide grandfather Alcohol Use: Occasionally Drug Use: none Lives with: Mother Lives In: Home Occupation: employed, student Review of Systems All Other Systems at this time: Reviewed and Negative ROS As stated above in the HPI, otherwise all systems are reviewed and negative. Physical Exam Vital Signs: Temperature: 97.0, Source: Temporal, Heart Rate: 104, Respiratory Rate: 16, BP: 111/68, Pulse Oximetry: 100, Weight: 95.450 Physical Exam General: Alert, no apparent distress. Respiratory: Lungs clear, no respiratory distress. Cardiovascular: Regular rate and rhythm, no murmurs. Gastrointestinal: Soft, nontender, nondistended. Bowels sounds present. Neurologic: Oriented x4. Psychiatric: Normal mood and affect. Skin: Normal color, warm and dry. No edema, no ecchymosis. Progress Results/Orders Results/Orders Vital Signs 08/09/25 08/09/25 13:36 14:46 Temp 97.0 97.0 Pulse 104 Resp 16 B/P (MAP) 111/68 Pulse Ox 100 Medical Decision Making Findings Patient does not present with any symptoms at this time. She is certainly meets criteria for medical clearance for methamphetamine recovery. Differential Dx:Considerations: Include: Intoxication-Alcohol, Intoxication-Oth er drug, Personality disorder, Substance abuse disorder, Acute delirium, Closed head injury, Cervical spine injury, Skull fracture, Fracture(s), Abrasion, Contusion, Foreign body, Hematoma, Laceration, Alcohol withdrawl syndrom, Encephalopathy, Hepatitis, Medically stable, Other Departure Disposition: 01 HOME / SELF CARE / HOMELESS Impression: Primary Impression: General medical exam Condition: Stable Discharge Instructions: Methamphetamines Use Disorder Additional Instructions: Patient meets criteria for medical clearance for inpatient /outpatient recovery. Referrals: NO PRIMARY CARE PROVIDER (PCP) Signature Scribe Signature: r Attestation: Scribed for Camden Ramos [employer] by Camden Arimjo NP . 08/09/25 18:43 CAMDEN RAMOS NP Aug 09, 2025 14:27
[2025-08-09 14:46] VITALS: TEMP 97
== END 2025-08-09 14:47 | disposition home or self-care (01) ==
LOC: ER 13:35
DX: Z00.00 Encounter for general adult medical examination without abnormal findings (principal); F15.90 Other stimulant use, unspecified, uncomplicated; Z88.8 Allergy status to other drugs, medicaments and biological substances
CPT/HCPCS: 99281; 99282

== ENCOUNTER 2025-08-15 19:32 | Emergency (ER) | payer MEDICAID ==
[~2025-08-15] VITALS: Ht 170.2 cm; Wt 89.0 kg
[2025-08-15 19:44] VITALS: BP 121/80; PULSE 100; RESP 16; O2SAT 100
[2025-08-15] MEDS ORDERED: BENZ142C9 TOP (20:03)
[2025-08-15] MEDS ORDERED: HYDR28OI2 TOP (20:03)
[2025-08-15] MEDS ORDERED: MUPI22OI30 TOP (20:03)
--- NOTE | 2025-08-15 20:06 | Physician Documentation ---
History of Present Illness ~ Chief Complaint: Rash Stated Complaint: BUG BITE Time Seen by MD: 19:51 Primary Medical Doctor: [facility] HPI 29-year-old female presents to the ED with a complaint of a rash on her left arm after getting her arm scraped by some bushes outside. Developed small pustules on the left forearm. Denies any fevers nausea vomiting Medication Reconciliation Allergies: Coded Allergies: nutmeg oil (Myristica seed oil) (Verified Allergy, Unknown, 08/15/25) Scheduled Benzoyl Peroxide (Benzoyl Peroxide), 1 APPLIC TOP Q12H Bupropion HCl (Bupropion HCl Sr), 1 TAB PO BID, (Reported) Bupropion HCl (Bupropion HCl), 150 MG PO BID Divalproex Sodium (Divalproex Sodium), 500 MG PO HS Divalproex Sodium DR* (Depakote DR*), 1 TAB PO HS, (Reported) Hydrocortisone Acetate (Hydrocortisone), 1 APPLIC TOP Q12H Methocarbamol (Methocarbamol), 1 TAB PO Q8H Mupirocin* (Bactroban*), 1 APPLIC TOP Q8H Olanzapine (Olanzapine), 1 TAB PO HS Olanzapine* (Zyprexa Zydis Odt*), 2 TAB PO HS Scheduled PRN Butalb/Acetaminophen/Caffeine (Fioricet Tab), 1 TAB PO Q6H PRN for pain Hydroxyzine Hcl* (Atarax*), 25 MG PO Q6H PRN for anxiety Miscellaneous Medications Hydroxyzine Pamoate (Hydroxyzine Pamoate), 1, (Reported) Past Medical History Past Medical History: No Pertinent History, Asthma Past Surgical History: , orthopedic surgeries Patient History: FHx: suicide grandfather Alcohol Use: Occasionally Drug Use: none Lives with: Mother Lives In: Home Occupation: employed, student Review of Systems All Other Systems at this time: Reviewed and Negative ROS As stated above in the HPI, otherwise all systems are reviewed and negative. Physical Exam Vital Signs: Temperature: 97.6, Source: Oral, Heart Rate: 100, Respiratory R ate: 16, BP: 121/80, Pulse Oximetry: 100, Weight: 89.000 Physical Exam General: Alert, no apparent distress. HEENT: PERRL, EOMI, no injection, moist mucous membranes. Extremities: rash with pustules left forearm Neurologic: Oriented x4. Psychiatric: Normal mood and affect. Skin: Normal color, warm and dry. No edema, no ecchymosis. Progress Results/Orders Results/Orders Vital Signs 08/15/25 08/15/25 19:44 20:26 Temp 97.6 97.6 Pulse 100 Resp 16 B/P (MAP) 121/80 Pulse Ox 100 Medical Decision Making Findings Treating with a topical steroid and antibiotic Differential Dx:Considerations: Include: Abscess, AIDS/HIV, Anthrax (cutaneous), Atopic dermatitis, Candidiasis, Contact dermatitis, Drug reaction, Erythema multiforme, Erysipelas, Gangrene, Herpes zoster, Herpes simplex, Hidradenitis suppurativa, Impetigo, Intertrigo, Lymes disease, Molluscum contagiosum, Osteomyelitis, Pediculosis, Pityriasis rosea, Psoriaisis, RMSF, Rosacea, Scabies, Scarlet fever, Tinea, Urticaria, Varicella, Viral exanthema, Other Departure Disposition: HOME / SELF CARE / HOMELESS Impression: Primary Impression: Skin irritation Condition: Improved Discharge Instructions: Contact Dermatitis Referrals: NO PRIMARY CARE PROVIDER (PCP) Prescriptions Mupirocin* (Bactroban*) 22 Gm Tube 1 APPLIC TOP Q8H for 5 Days, #15 GM apply to affected area(s) Prov: CAMDEN RAMOS NP 08/15/25 Hydrocortisone Acetate (Hydrocortisone) 1 % Oint...g. 1 APPLIC TOP Q12H for 7 Days, #28 GM 0 Refills Prov: CAMDEN RAMOS NP 08/15/25 Benzoyl Peroxide (Benzoyl Peroxide) 5 % Cleanser 1 APPLIC TOP Q12H for 30 Days, #236 GM 0 Refills Prov: CAMDEN RAMOS NP 08/15/25 Signature Scribe Signature: v Attestation: Scribed for Camden Ramos Np by Camden Yin 08/15/25 22:25 CAMDEN RAMOS NP Aug 15, 2025 20:06
[2025-08-15 20:26] VITALS: TEMP 97.6
== END 2025-08-15 21:05 | disposition home or self-care (01) ==
LOC: ER 19:33
DX: L98.8 Other specified disorders of the skin and subcutaneous tissue (principal); Z88.8 Allergy status to other drugs, medicaments and biological substances
CPT/HCPCS: 99283; A6250; A6449

== ENCOUNTER 2025-08-18 21:42 | Emergency (ER) | payer MEDICAID ==
[~2025-08-18 21:42] MED LIST changes: +BENZ142C9 TOP; +HYDR28OI2 TOP; +MUPI22OI30 TOP
== END 2025-08-19 00:04 | disposition left against medical advice (07) ==
LOC: ER 21:43
DX: M79.643 Pain in unspecified hand (principal); Z88.8 Allergy status to other drugs, medicaments and biological substances; Z53.21 Procedure and treatment not carried out due to patient leaving prior to being seen by health care provider

== ENCOUNTER 2025-10-01 13:33 | Emergency (ER) | payer MEDICAID ==
[~2025-10-01] VITALS: Ht 167.6 cm; Wt 91.3 kg
[~2025-10-01 13:33] MED LIST changes: -MUPI22OI30 TOP
[2025-10-01 13:38] VITALS: BP 155/97; PULSE 113; RESP 18; TEMP 97.8; O2SAT 99
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
== END 2025-10-01 14:40 ==
LOC: ER 13:34
DX: Z00.00 Encounter for general adult medical examination without abnormal findings (principal); J45.909 Unspecified asthma, uncomplicated; Z88.8 Allergy status to other drugs, medicaments and biological substances; Z79.899 Other long term (current) drug therapy; Z72.89 Other problems related to lifestyle; Z98.890 Other specified postprocedural states
CPT/HCPCS: 99283; 99284